=== PATIENT | female | born 1950 | race Caucasian/White ===

== ENCOUNTER → 2020-10-08 12:43 | Outpatient (CLI) | payer MEDICARE, SELFPAY ==
--- NOTE | ~2020-10-08 | MR_ITS ---
. EXAMINATION: MR lumbar spine wo con DATE: 10/08/2020 13:47 INDICATION: Low back pain. TECHNIQUE: Magnetic resonance imaging (MRI) of the lumbar spine was performed without intravenous con trast. Sequences included sagittal T2-weighted FSE, sagittal T2-weighted FS FSE, sagittal T1-weighted FSE, and axial T2-weighted FSE. COMPARISON: None FINDINGS: There is 3 mm anterolisthesis of L4 on L5. Vertebral body heights are normal. There is mild ly decreased disc height at L1-L2. The distal spinal cord signal intensity is normal. The conus medul nicola is at L1. There is a 2.7 cm cyst in left kidney. The following disc levels are specifically dis cussed: L1-L2: The disc is bulging. There is moderate bilateral facet joint osteoarthritis. There is mild rig ht neural foraminal stenosis. There is mild central canal stenosis. L2-L3: The disc is mildly bulging. There is mild bilateral facet joint osteoarthritis. There is mild left neural foraminal stenosis. There is no central canal stenosis. L3-L4: The disc is bulging and has an annular fissure. There is severe bilateral facet joint osteoart hritis. There is mild bilateral neural foraminal stenosis. There is mild central canal stenosis. L4-L5: The disc does not extend beyond the endplate margin. There is severe bilateral facet joint ost eoarthritis. There is mild bilateral neural foraminal stenosis. There is moderate central canal steno sis. L5-S1: The disc does not extend beyond the endplate margin. There is severe bilateral facet joint ost eoarthritis. There is no neural foraminal stenosis. There is no central canal stenosis. IMPRESSION: 1. Moderate lumbar spondylosis. Reviewed, dictated and finalized at location A. [facility]
== END ==
PROVIDERS: Visit Provider Nurse Practitioner Adult Health
DX: M47.816 Spondylosis without myelopathy or radiculopathy, lumbar region (principal)
CPT/HCPCS: 72148

== ENCOUNTER → 2022-03-02 07:06 | Outpatient (CLI) | payer MEDICARE, SELFPAY ==
--- NOTE | ~2022-03-02 | MR_ITS ---
EXAMINATION: MR lumbar spine wo con DATE: 03/02/2022 07:55 INDICATION: Lumbar radiculopathy TECHNIQUE: Magnetic resonance imaging (MRI) of the lumbar spine was performed without intravenous con trast. Sequences included sagittal T2-weighted FSE, sagittal T2-weighted FS FSE, sagittal T1-weighted FSE, and axial T2-weighted FSE. COMPARISON: 10/08/2020 FINDINGS: Unchanged 2-3 mm anterolisthesis L4 on L5. Vertebral body heights are normal. Again seen is mild disc height loss at L1-L2 with mild fibrofatty degenerative endplate changes along the margins of a small Schmorl's node at the anterior inferior endplate of L1. Marrow signal is otherwise normal. Additiona l mild disc height loss at L4-L5 and minimal disc height loss at L3-L4. The conus medullaris terminat es at L1-L2. There is normal signal in the caudal spinal cord. Consistent is a T2 hyperintense exophy tic cyst arising from the lower pole of the left kidney measuring approximately 3.1 cm. Paravertebral soft tissues are otherwise unremarkable. The following disc levels are specifically discussed: T12-L1: The disc does not extend beyond the endplate margin. There is mild bilateral facet joint oste oarthritis. There is no neural foraminal stenosis. There is no central canal stenosis. L1-L2: Disc is bulging. There is moderate bilateral facet joint osteoarthritis. There is mild bilater al neural foraminal stenosis. There is mild central canal stenosis. L2-L3: Disc is mildly bulging. There is moderate bilateral facet joint osteoarthritis. There is mild bilateral neural foraminal stenosis. There is no central canal stenosis. L3-L4: Disc is bulging with annular fissure. There is severe bilateral facet joint osteoarthritis. Th ere is mild bilateral neural foraminal stenosis. There is mild central canal stenosis. L4-L5: Disc is bulging. There is severe bilateral facet joint osteoarthritis. There is mild to modera te bilateral neural foraminal stenosis. There is severe central canal stenosis. L5-S1: The disc does not extend beyond the endplate margin. There is severe bilateral facet joint ost eoarthritis. There is no neural foraminal stenosis. There is no central canal stenosis. IMPRESSION: 1. Moderate lumbar spondylosis most notable for severe central canal stenosis at L4-L5. Reviewed, dictated and finalized at location A. IMPRESSION: 1. Moderate lumbar spondylosis most notable for severe central canal stenosis a t L4-L5.
--- NOTE | ~2022-03-02 | MR_ITS ---
EXAMINATION: MR thoracic spine wo con DATE: 03/02/2022 07:54 INDICATION: Thoracic spine pain TECHNIQUE: Magnetic resonance imaging (MRI) of the thoracic spine was performed without intravenous c ontrast. Sagittal localizer T1-weighted FSE of the cervicothoracic spine was obtained. Thoracic spine sequences included sagittal T2-weighted FSE, sagittal T1-weighted SE, Sagittal T2-weighted FS FSE, a nd axial T2-weighted FSE. COMPARISON: None FINDINGS: Alignment is normal. Anterior spinal fusion at C6-C7. Thoracic vertebral body heights are normal.Mild fibrofatty degenerative endplate changes along a small Schmorl's node at the anterior inferior endpl ate of L1. Marrow signal is otherwise normal. Moderate disc height loss atT5-T6 and T6-T7 and mild di sc height loss at the remaining levels from T2-T3 through T10-T11.Annular fissure with small central disc extrusion at T1-T2 measures3 mm AP, 3-4 mm left to right and which extends 5 mm caudal to the le iesha of the superior endplate of T1 which results in only mild central canal stenosis. Tiny left rayna inal zone disc protrusion at T8-T9 with no central canal stenosis. Remaining discs do not extend beyo nd the endplate margins. There is normal spinal cord signal. The conus terminates at L1-L2. There is mild bilateral neural foraminal stenosis at T1-T2 resulting from moderate left-sided and mild right-s ided facet osteoarthritis. Additional mild to moderate facet osteoarthritis scattered throughout the remainder of the thoracic spine without significant neural foraminal stenosis. 1.5 cm left thyroid no dule. Paravertebral soft tissues are unremarkable. IMPRESSION: 1. Mild to moderate thoracic spondylosis most notable for small central disc extrusion at T1-T2 resul ting in only mild central canal stenosis. 2. Anterior spinal fusion at C6-C7. 3. 1.5 cm left thyroid nodule. Could consider thyroid ultrasound for risk stratification. Reviewed, dictated and finalized at location A. IMPRESSION: 1. Mild to moderate thoracic spondylosis most notable for small central disc ex trusion at T1-T2 resulting in only mild central canal stenosis. 2. Anterior spinal fusion at C6-C7. 3. 1.5 cm left thyroid nodule. Could consider thyroid ultrasound for risk strat ification.
== END ==
PROVIDERS: Visit Provider Nurse Practitioner Family
DX: M47.896 Other spondylosis, lumbar region (principal); Z98.1 Arthrodesis status; E04.1 Nontoxic single thyroid nodule
CPT/HCPCS: 72146; 72148

== ENCOUNTER 2022-07-01 08:27 | Outpatient (CLI) | payer MEDICARE, SELFPAY ==
--- NOTE | 2022-07-01 | ECG_ITS ---
Measurements Intervals Badger Rate: 84 P: 41 MA: 177 QRS: -19 QRSD: 79 T: 30 QT: 336 QTc: 399 Interpretive Statements SINUS RHYTHM POSSIBLE LEFT ATRIAL ENLARGEMENT CANNOT RULE OUT SEPTAL INFARCT, AGE INDETERMINATE ABNORMAL ECG NO PREVIOUS ECG AVAILABLE FOR COMPARISON Electronically Signed On 07-01-2022 9:14:18 CDT by Ivan Rodriguez D.O.
[2022-07-01 09:16] LABS: Basophils Absolute Auto 0.1 K/mm3 (0.0-0.1); Eosinophils Absolute Auto 0.1 K/mm3 (0-0.3); Eosinophils Percent Auto 2.3 % (0-4.4); Hemoglobin 14.9 g/dL (12.0-15.0); Lymphocytes Absolute Auto 1.81 K/mm3 (0.9-3.2); Lymphocytes Percent Auto 37.4 % (18.3-44.2); Mean Corpuscular HGB Conc 32.4 g/dl (32-36); Mean Corpuscular Hemoglobin 28.7 pg (26-34); Mean Corpuscular Volume 88.5 fl (80-100); Mean Platelet Volume 9.4 fl (7.4-10.4); Monocytes Absolute Auto 0.4 K/mm3 (0.1-0.6); Monocytes Percent Auto 8.9 % (2.6-8.5); Neutrophils Absolute Auto 2.4 K/mm3 (1.3-6.7); Neutrophils Percent Auto 50.4 % (45.5-73.1); Platelet Count Result 233 k/mm3 (150-375); Red Cell Distribution Width 14.4 % (11.5-14.5); White Blood Count 4.8 K/mm3 (4.5-10.0)
[2022-07-01 09:26] LABS: Anion Gap 12 mmol/L (8-16); Blood Urea Nitrogen 21 mg/dL (7-17); CRP < 0.5 mg/dL (<1.0); Calcium 9.7 mg/dL (8.4-10.2); Carbon Dioxide 25 mmol/L (22-30); Chloride 100 mmol/L (98-107); Estimated Glomerular Filt Rate 54; Glucose 112 mg/dL (65-110); Potassium 4.1 mmol/L (3.4-5.0); Sodium 137 mmol/L (137-145)
[2022-07-01 09:42] LABS: Appearance Urine Slightly Cloudy (Clear); Bilirubin Urine 1+ (Negative); Blood Urine Negative (Negative); Color Urine Dark Yellow (Yellow); Glucose Urine UA Negative (Negative); Ketones Urine Trace mg/dL (Negative); Leukocyte Esterase Ur Trace LEU/UL (Negative); Nitrate Urine Negative (Negative); Protein Urine Negative (Negative); Specific Grav Ur >= 1.030 (1.001-1.035); Urobilinogen Urine 0.2 mg/dL (<2.0)
[2022-07-01 10:04] LABS: Amorphous Sediment Urine Few; Bacteria Urine Trace /hpf; Mucus Urine Few /lpf; Squamous Epithelial Cell Urine Moderate /hpf (Few); WBC Urine 21-30 /hpf
[2022-07-01 10:09] LABS: Add Urine Microscopic? YES
[2022-07-01 10:51] LABS: Erythrocyte Sedimentation Rate 12 mm/hr (0-20)
== END 2022-07-01 08:28 | disposition home or self-care (01) ==
PROVIDERS: Visit Provider Nurse Practitioner Family
DX: Z01.818 Encounter for other preprocedural examination (principal); R94.31 Abnormal electrocardiogram [ECG] [EKG]
CPT/HCPCS: 36415; 80048; 81001; 85025; 85652; 86140; 87086; 87088; 93005

== ENCOUNTER → 2022-11-10 12:31 | Outpatient (CLI) | payer MEDICARE, SELFPAY ==
--- NOTE | ~2022-11-10 | MM_ITS ---
EXAMINATION: MM screening elizabeth BI w a[facility] HISTORY: Screening mammogram TECHNIQUE: Craniocaudal and mediolateral oblique 3-D tomosynthesis images were obtained and synthetic 2-D images were generated. CAD analysis was submitted and interpreted. COMPARISON: None BREAST PARENCHYMAL COMPOSITION: There are scattered areas of fibroglandular density... FINDINGS: There is no evidence of suspicious mass, calcification, or architectural distortion to sugg est malignancy in either breast. There has been no suspicious interval change. IMPRESSION: 1. No mammographic evidence of malignancy. 2. Recommend routine screening mammography in one year. BI-RADS Category 1: Negative Reviewed, dictated and finalized at location A.
== END ==
DX: Z12.31 Encounter for screening mammogram for malignant neoplasm of breast (principal)
CPT/HCPCS: 77063; 77067

== ENCOUNTER → 2023-03-07 10:24 | Outpatient (CLI) | payer MEDICARE, SELFPAY ==
--- NOTE | ~2023-03-07 | XR_ITS ---
AP and lateral views of the left hip Clinical history: Pain Findings: No acute fracture or dislocation is seen. There is severe left hip joint osteoarthritic, wi th joint space narrowing and extensive bony productive change. Soft tissues are unremarkable. Impression: Severe left hip joint osteoarthritis. No fracture or dislocation seen. Reviewed, dictated and finalized at location . Impression: Severe left hip joint osteoarthritis. No fracture or dislocation seen.
== END ==
PROVIDERS: PCP Family Medicine Sports Medicine; Visit Provider Nurse Practitioner Family
DX: M16.12 Unilateral primary osteoarthritis, left hip (principal)
CPT/HCPCS: 73502

== ENCOUNTER 2024-04-12 12:42 | Outpatient (CLI) | payer MEDICARE, SELFPAY ==
--- NOTE | ~2024-04-12 | MM_ITS ---
EXAMINATION: MM screening elizabeth BI w aub[facility] HISTORY: Screening TECHNIQUE: Craniocaudal and mediolateral oblique 3-D tomosynthesis images were obtained and synthetic 2-D images were generated. CAD analysis was submitted and interpreted. COMPARISON: 11/10/2022 BREAST PARENCHYMAL COMPOSITION: Not dense: There are scattered areas of fibroglandular density. FINDINGS: There is no evidence of suspicious mass, calcification, or architectural distortion to sugg est malignancy in either breast. There has been no suspicious interval change. IMPRESSION: 1. No mammographic evidence of malignancy. 2. Recommend routine screening mammography in one year. BI-RADS Category 1: Negative Reviewed, dictated and finalized at location B.
== END 2024-04-12 12:43 ==
LOC: MICIMG 12:44
PROVIDERS: PCP Obstetrics & Gynecology; Visit Provider Family Medicine Sports Medicine
DX: Z12.31 Encounter for screening mammogram for malignant neoplasm of breast (principal)
CPT/HCPCS: 77063; 77067

== ENCOUNTER 2025-05-14 08:55 | Outpatient (CLI) | payer MEDICARE, SELFPAY ==
--- NOTE | ~2025-05-14 | MM_ITS ---
EXAMINATION: MM screening elizabeth BI w [facility] HISTORY: Screening TECHNIQUE: Craniocaudal and mediolateral oblique 3-D tomosynthesis images were obtained and synthetic 2-D images were generated. CAD analysis was submitted and interpreted. COMPARISON: 11/10/2022 BREAST PARENCHYMAL COMPOSITION: There are scattered areas of fibroglandular density. FINDINGS: There is no evidence of suspicious mass, calcification, or architectural distortion to suggest malignancy. There has been no suspicious interval change. IMPRESSION: 1. No mammographic evidence of malignancy. Recommend routine screening mammography in one year. BI-RADS Category 2: Benign finding(s) Reviewed, dictated and finalized at location Q. IMPRESSION: 1. No mammographic evidence of malignancy. Recommend routine screening mammogra phy in one year. BI-RADS Category 2: Benign finding(s)
--- OUTSIDE RECORDS SUMMARY | 2025-05-14 10:00 | XMS_ITS | Clinical Summary ---
Author Organization [facility] Address [address] [place] [address] Care Team Providers Care Management Engineer Name Role Phone Randolph Lobato MD Unavailable [phone] Maria E Schneider MD Unavailable [phone] Leslye Armenta MD Unavailable [phone] Shabnam Rivera MD Unavailable [phone] Iker Cage MD Unavailable Jaden Alvares MD Unavailable Zeus Marie MD Unavailable [phone] Anabell Jalloh NP Primary Care Provider [phone] Allergies Active Allergy Reactions Criticality Noted Date Comments Diphenhydramine Agitation Low 05/18/2024 Nickel Rash Medium 08/07/2011 Paroxetine Other (See comments) Low 09/28/2017 Hyperactivity, Itchy on the inside Fttdqen-Eca-Yzw Reductase Inhibitors Joint pain Low 07/03/2018 Ezetimibe Muscle pain Medium 08/04/2023 Medications escitalopram (LEXAPRO) 20 mg tablet Take 1.5 tablets (30 mg total) by mouth every evening Active cholecalciferol (VITAMIN D-3) 4,000 unit tablet daily Active traZODone (DESYREL) 100 mg tablet TAKE 1 TABLET EVERY NIGHT 90 tablet 3 5 Active losartan (COZAAR) 50 mg tabletIndication s:Hypertension, essential TAKE 1 TABLET TWICE DAILY 180 tablet 3 5 Active solifenacin (VESIcare) 10 mg tablet 5 Active amLODIPine (NORVASC) 5 mg tabletIndication s:Essential hypertension Take 1 tablet (5 mg total) by mouth daily 90 tablet 3 5 Active metFORMIN XR (GLUCOPHAGE XR) 500 mg 24 hr tabletIndication s:Type 2 diabetes mellitus without complication, without long-term current use of insulin (HCC) Take 1 tablet (500 mg total) by mouth daily with breakfast 90 tablet 1 5 07/26/20 26 Active semaglutide (OZEMPIC) 0.25 mg or 0.5 mg (2 mg/3 mL) pen injector injectionIndicat ions:type 2 diabetes mellitus Inject 0.25 mg under the skin every 7 days X 4 weeks then increase to .5mg weekly 6 mL 1 5 Active semaglutide (OZEMPIC) 0.25 mg or 0.5 mg (2 mg/3 mL) pen injector injectionIndicat ions:Type 2 diabetes mellitus without complication, without long-term current use of insulin (HCC) Inject 0.5 mg under the skin every 7 days 3 mL 1 5 05/02/20 25 Discontin ued(Alter joss therapy) Active Problems Problem Noted Date Diagnosed Date Abnormal mammogram 05/02/2025 Stage 3a chronic kidney disease 05/02/2025 Assessment & Plan (05/02/2025 1:39 PM CDT): Will work on increasing water intake, decreasing soda intake. Will recheck bmp in 3 months Type 2 diabetes mellitus wit hout complication, without long-term current use of insulin 05/02/2025 Assessment & Plan (05/02/2025 1:39 PM CDT): Orders: metFORMIN XR (GLUCOPHAGE XR) 500 mg 24 hr tablet; Take 1 tablet (500 mg total) by mouth daily with breakfast Hemoglobin A1c; Future Basic metabolic panel; Future Lipid panel; Future Albumin Creatinine Ratio, Urine; Future Actinic keratosis 04/04/2025 Assessment & Plan (04/04/2025 12:52 PM CDT): Cryotherapy, skin lesion Date/Time: 04/04/2025 12:46 PM Performed by: Anabell Jalloh NP Authorized by: Anabell Jalloh NP Consent: Verbal consent obtained Risks and benefits: risks, benefits and alternatives were discussed Consent given by: patient Patient understanding: patient states understanding of the procedure being performed Patient consent: the patient's understanding of the procedure matches consent given Procedure consent: procedure consent matches procedure scheduled Patient identity confirmed: verbally with patient Preparation: Patient was prepped and draped in the usual sterile fashion. Local anesthesia used: no Anesthesia: Local anesthesia used: no Sedation: Patient sedated: no Patient tolerance: patient tolerated the procedure well with no immediate complications Comments: Options discussed with patient including OTC remedies, watchful waiting and in office treatment. The risk and benefits of freezing in the office was discussed; patient would like to proceed. 1 lesion on left forearm was frozen three times with liquid nitrogen with good freeze/thaw cycles. Pt tolerated the procedure well. Pt to keep areas clean and dry. Pt advised to anticipate redness and tenderness. Bilateral primary osteoarthritis of knee 025 Primary osteoarthritis of right hip 02/17/2024 Statin intolerance 02/13/2024 Assessment & Plan (04/04/2025 11:01 AM CDT): Assessment & Plan (02/13/2024 6:03 PM CDT): Patient is trying to control cholesterol diet and lifestyle and given history of intolerance to ezetimibe and multiple statins. If LDL does not continue to improve may need to consider a trial of something like Nexletol OAB (overactive bladder) 02/13/2024 Assessment & Plan (11/12/2024 2:48 PM CDT): Bladder is doing well on the myrbetric Assessment & Plan (02/13/2024 6:03 PM CDT): Chronic. Working with Urology. Symptoms improved with Gemtesa Well woman exam 10/24/2023 Overview (10/24/2023): Lab: Pap:remote h/o abnl Labs with pcp. Zaida:due Colonoscopy:2022 per pt BMD:2021 Assessment & Plan (11/12/2024 3:01 PM CDT): Complete exam done. She is very nervous about not getting paps as she had a friend who had cervical cancer at age 74. Options discussed Will do next year. Assessment & Plan (10/24/2023 11:15 AM MANAGER OF BUSINESS): Complete exam done. Major depressive disorder wi th single episode, in partial remission 02/09/2023 Assessment & Plan (04/04/2025 11:01 AM CDT): Assessment & Plan (02/13/2024 6:01 PM CDT): Chronic. Stable on current regimen. She is working with Psychiatry. They do have her on the higher dose of citalopram 30 mg daily with caution. She will continue her current regimen per psychologist as she seems to be seeing benefit and tolerates it Assessment & Plan (08/11/2023 6:46 PM MANAGER OF BUSINESS): Chronic. Stable on medication. Psychiatry has her currently on Lexapro 30 mg daily. Continue care for specialist Urinary urgency 10/18/2022 Assessment & Plan (04/04/2025 12:52 PM CDT): Sees urology of [place]. Currently on vesicare 10mg Assessment & Plan (02/13/2024 6:02 PM CDT): Chronic. Struggles with symptoms. She is working with Urology. She notes the Gemtesa has provided good benefit Assessment & Plan (10/24/2023 11:13 AM MANAGER OF BUSINESS): She is doing well with the gemtesa Will continue on. Assessment & Plan (08/11/2023 6:46 PM MANAGER OF BUSINESS): Chronic. Improve with recent medication adjustment by her urologist. Assessment & Plan (10/18/2022 9:29 AM MANAGER OF BUSINESS): Timed voiding discussed Will see if she can get the myrbetriq If not, will divided the dose and see if the sx are better. Obstructive sleep apnea 02/06/2020 Assessment & Plan (02/13/2024 6:01 PM CDT): Chronic. Relatively controlled. Continue nightly use of CPAP. Continue weight loss efforts Assessment & Plan (08/11/2023 6:46 PM MANAGER OF BUSINESS): Chronic. On CPAP. Continue weight loss IFG (impaired fasting glucose) 10/31/2018 Assessment & Plan (02/13/2024 6:02 PM CDT): Chronic. Suboptimally controlled in the past but has been improving. Hopefully the continued weight loss efforts will provide significant benefit. She has an A1c on order from the orthopedic surgeon as part of her preoperative labs. We will see what this shows Assessment & Plan (08/11/2023 6:46 PM MANAGER OF BUSINESS): Chronic. Improving unless labs. Continue work on healthy diet, exercise weight loss Assessment & Plan (10/06/2022 8:37 AM MANAGER OF BUSINESS): Impaired Fasting Glucose is improving with lifestyle modifications Counseled on regular aerobic exercise, including walkig, jogging, targeting 10K- 20K step equivalent daily., Counseled on low carbohydrate diet and Counseled on intermittent fasting diet. Follow up at the next regular appointment Assessment & Plan (12/29/2021 9:21 AM CDT): Impaired Fasting Glucose is stable Counseled on regular aerobic exercise, including walkig, jogging, targeting 10K- 20K step equivalent daily., Counseled on low carbohydrate diet and Counseled on intermittent fasting diet. Follow up at the next regular appointment Assessment & Plan (05/21/2021 9:03 AM CDT): Impaired Fasting Glucose is stable Counseled on regular aerobic exercise, including walkig, jogging, targeting 10K- 20K step equivalent daily., Counseled on low carbohydrate diet and Counseled on intermittent fasting diet. Follow up at the next regular appointment Assessment & Plan (10/28/2020 1:21 PM MANAGER OF BUSINESS): Impaired Fasting Glucose is stable Counseled on regular aerobic exercise, including walkig, jogging, targeting 10K- 20K step equivalent daily., Counseled on low carbohydrate diet and Counseled on intermittent fasting diet. Follow up at the next regular appointment Assessment & Plan (04/15/2020 10:46 AM CDT): Impaired Fasting Glucose is stable Counseled on regular aerobic exercise, including walkig, jogging, targeting 10K- 20K step equivalent daily., Counseled on low carbohydrate diet and Counseled on intermittent fasting diet. Follow up at the next regular appointment Assessment & Plan (10/09/2019 2:35 PM MANAGER OF BUSINESS): Impaired Fasting Glucose is stable Counseled on regular aerobic exercise, including walkig, jogging, targeting 10K- 20K step equivalent daily., Counseled on low carbohydrate diet and Counseled on intermittent fasting diet. Follow up 6 months Assessment & Plan (10/31/2018 9:07 AM MANAGER OF BUSINESS): Mild FPG elevation. Counseled on exercise, diet, weight loss. Lumbar spinal stenosis 10/31/2018 Assessment & Plan (02/13/2024 6:00 PM CDT): Chronic. Struggles with symptoms from pain. Follows with pain management. Continue Xtampza ER and spinal stimulator. Continue gabapentin. She has been working on trying to wean use in his down to just 300 mg twice daily. Assessment & Plan (08/11/2023 6:46 PM MANAGER OF BUSINESS): Chronic. Follows with pain management. Continue care per specialists Assessment & Plan (10/06/2022 8:35 AM MANAGER OF BUSINESS): Sciatica pain much improved since spinal cord stimulator placed on 07/09/2022. Assessment & Plan (10/28/2020 1:28 PM MANAGER OF BUSINESS): Severe at L4/L5 on MRI 12/11/18. Currently seeing Pain Clinic and scheduled for what sounds like lumbar SONYA in a couple weeks. Assessment & Plan (10/09/2019 2:34 PM MANAGER OF BUSINESS): Chronic. Fluctuating. Continue HEP and current regimen. Assessment & Plan (02/01/2019 10:49 AM CDT): Improving with current regimen per Dr. Lima Assessment & Plan (10/31/2018 9:08 AM MANAGER OF BUSINESS): Fluctuating. Benign exam. Check labs, Xrays. Refer to PT. Advised OTC analgesics PRN and weight loss. Lumbar degenerative disc disease 10/31/2018 Assessment & Plan (02/13/2024 6:01 PM CDT): Chronic. Has struggled with back pain. continue care per pain management. Hopefully with continued weight loss she will see continued improvement in her symptoms and be able to further wean meds in the future Assessment & Plan (08/11/2023 6:46 PM MANAGER OF BUSINESS): Chronic. Follows with pain management. Continue care per specialist Essential hypertension Assessment & Plan (04/04/2025 11:01 AM CDT): Orders: CBC with auto differential; Future amLODIPine (NORVASC) 5 mg tablet; Take 1 tablet (5 mg total) by mouth daily Assessment & Plan (02/13/2024 5:59 PM CDT): Chronic. Controlled. Continue losartan and amlodipine. Monitor blood pressure. Goal less than 140/90 with optimal less than 130/80. Work on diet, exercise and continued weight loss Assessment & Plan (08/11/2023 6:44 PM MANAGER OF BUSINESS): Chronic. HTN controlled. Cont prescription Rx. Low sodium diet (DASH or Mediterranean), exercise, wt loss (if over weight) discussed Assessment & Plan (10/06/2022 8:38 AM MANAGER OF BUSINESS): Hypertension is stable Continue current treatment regimen. Weight loss. Regular aerobic exercise. Continue current medications. Blood pressure will be reassessed at the next regular appointment. Assessment & Plan (12/29/2021 9:21 AM CDT): Hypertension is stable Continue current treatment regimen. Dietary sodium restriction. Weight loss. Regular aerobic exercise. Continue current medications. Blood pressure will be reassessed at the next regular appointment. Assessment & Plan (08/18/2021 9:57 AM MANAGER OF BUSINESS): Hypertension is improving with treatment Continue current treatment regimen. Dietary sodium restriction. Weight loss. Regular aerobic exercise. Continue current medications. Blood pressure will be reassessed at the next regular appointment. Assessment & Plan (05/21/2021 9:03 AM CDT): Hypertension is improving with treatment Dietary sodium restriction. Weight loss. Regular aerobic exercise. Medication changes per orders. Blood pressure will be reassessed in 3 months. Increase dose losartan. Assessment & Plan (10/28/2020 1:21 PM MANAGER OF BUSINESS): Hypertension is stable Continue current treatment regimen. Weight loss. Regular aerobic exercise. Continue current medications. Blood pressure will be reassessed at the next regular appointment. Assessment & Plan (04/15/2020 10:46 AM CDT): Hypertension is stable Continue current treatment regimen. Dietary sodium restriction. Weight loss. Regular aerobic exercise. Continue current medications. Blood pressure will be reassessed at the next regular appointment. Assessment & Plan (10/09/2019 2:18 PM MANAGER OF BUSINESS): Hypertension is controlled Continue current treatment regimen. Dietary sodium restriction. Weight loss. Regular aerobic exercise. Continue current medications. Ambulatory blood pressure monitoring. Blood pressure will be reassessed at the next regular appointment. Assessment & Plan (02/01/2019 10:56 AM CDT): Hypertension is controlled. Continue current treatment regimen. Weight loss. Regular aerobic exercise. Continue current medications. Ambulatory blood pressure monitoring. Blood pressure will be reassessed at the next regular appointment. Assessment & Plan (10/31/2018 9:08 AM MANAGER OF BUSINESS): Hypertension is improving with treatment. Continue current treatment regimen. Weight loss. Regular aerobic exercise. Continue current medications. Blood pressure will be reassessed in 3 months. Assessment & Plan (07/03/2018 9:24 AM MANAGER OF BUSINESS): Hypertension is controlled.. Dietary sodium restriction. Regular aerobic exercise. Ambulatory blood pressure monitoring. change from verapamil to amlodipine Blood pressure will be reassessed in 3 months. Hyperlipidemia Assessment & Plan (05/02/2025 1:39 PM CDT): Allergic to statins and zetia. Will consider repatha in the future. Orders: Lipid panel; Future Assessment & Plan (04/04/2025 11:01 AM CDT): Orders: Lipid panel; Future Comprehensive metabolic panel; Future CBC with auto differential; Future Assessment & Plan (02/13/2024 5:59 PM CDT): Chronic. Has been intolerant to statins and Zetia. Hopefully this will continue to improve with diet and lifestyle as well as her recent weight loss efforts. Offered option to recheck but she defers today. Consider rechecking at 6 months. Resulted in the Past 12 Months 08/03/23 1017 CHOL 227* TRIG 135 HDL 64 LDL 137* Assessment & Plan (08/11/2023 6:45 PM MANAGER OF BUSINESS): Intolerance to multiple statins and Zetia. Discussed LDL goal less than 100 with optimal less than 70. Due to medication and tolerance patient may eventually need to be considered for PCSK9 inhibitor like Repatha or Praluent. If we are working on weight loss and exercise currently we will give her some additional time to try to get numbers better before considering medication Assessment & Plan (12/29/2021 9:07 AM CDT): I discussed ASCVD risk. I spent 15 minutes counseling on CV risk reduction. Our discussion included the followin. Healthy eating habits, including low carbohydrate diet, low starch vegetables. 2. Regular aerobic exercise plan, which can include walking, jogging, treadmill, rowing, swimming biking. I recommend targeting the equivalent of 10K steps daily most days of the week. 3. Optimize BP control. Assessment & Plan (10/28/2020 1:22 PM MANAGER OF BUSINESS): I spent 15 minutes counseling her on CV risk reduction. Our discussion included the followin. Healthy eating habits, including low carbohydrate diet, low starch vegetables. We discussed intermittent fasting and paleo diets. 2. Regular aerobic exercise plan, which can include walking, jogging, treadmill, rowing, swimming biking. I recommend targeting the equivalent of 20K steps daily most days of the week. 3. Optimize BP control. Continue current regimen. Assessment & Plan (10/09/2019 2:18 PM MANAGER OF BUSINESS): I spent 15 minutes counseling her on CV risk reduction. Our discussion included the followin. Healthy eating habits, including low carbohydrate diet, low starch vegetables. We discussed intermittent fasting and paleo diets. 2. Regular aerobic exercise plan, which can include walking, jogging, treadmill, rowing, swimming biking. I recommend targeting the equivalent of 20K steps daily most days of the week. 3. Optimize BP control. 4. Assessment of ASCVD risk and recommendations how to mitigate this risk.discussion was consistent with the 5 A s approach. Continue current regimen. Assessment & Plan (02/01/2019 10:52 AM CDT): Intolerant of statins due to myalgia and joint pain. We discussed options. Try lower dose statin and observe. Assessment & Plan (10/31/2018 8:55 AM MANAGER OF BUSINESS): I spent 15 minutes counseling her on CV risk reduction. Our discussion included the followin. Healthy eating habits, including low carbohydrate diet, low starch vegetables. We discussed intermittent fasting and paleo diets. 2. Regular aerobic exercise plan, which can include walking, jogging, treadmill, rowing, swimming biking. I recommend targeting the equivalent of 20K steps daily most days of the week. 3. Optimize BP control. 4. Taking aspirin. 5. Assessment of ASCVD risk and recommendations how to mitigate this risk.discussion was consistent with the 5 A s approach. Continue marcelo ayala was started after last visit. Assessment & Plan (07/03/2018 9:06 AM MANAGER OF BUSINESS): I spent 15 minutes counseling her on CV risk reduction. Our discussion included the followin. Healthy eating habits, including low carbohydrate diet, low starch vegetables. We discussed intermittent fasting and paleo diets. 2. Regular aerobic exercise plan, which can include walking, jogging, treadmill, rowing, swimming biking. I recommend targeting the equivalent of 20K steps daily most days of the week. 3. Optimize BP control. 4. Taking aspirin. 5. Assessment of ASCVD risk and recommendations how to mitigate this risk.discussion was consistent with the 5 A s approach. Intolerant of statins due to joint pain. Class 3 severe obesity due t o excess calories with serious comorbidity and body mass index (BMI) of 40.0 to 44.9 in adult Assessment & Plan (05/02/2025 1:39 PM CDT): Assessment & Plan (04/04/2025 12:52 PM CDT): BMI Follow-up includes: nutrition counseling. Assessment & Plan (02/13/2024 6:00 PM CDT): Chronic. Suboptimally controlled but showing significant improvement. Patient has really been working on diet, exercise and weight loss in efforts to get her BMI under 40 to be a candidate for bilateral hip replacement. Encouraged her to keep up the diet and weight loss efforts. Continued weight loss will be beneficial for most of her medical issues. Hopefully once she gets her hips replaced she will be able to get even more exercise and keep up the good work Assessment & Plan (08/11/2023 6:45 PM MANAGER OF BUSINESS): Chronic. Suboptimally controlled but improving. Continue work on weight loss. We need to target a BMI of less than 40 to have her be a candidate for possible total hip replacement. Patient has lost about 20 lb in the last 6 months. We encouraged her to keep up the good work and congratulated her on her current success Assessment & Plan (12/29/2021 9:19 AM CDT): Obesity is worsening. Discussed the patient's BMI. The BMI is above average; BMI management plan is completed. General weight loss/lifestyle modification strategies discussed (elicit support from others; identify saboteurs; non-food rewards, etc). Assessment & Plan (05/21/2021 8:58 AM CDT): Obesity is improving with lifestyle modifications. Discussed the patient's BMI. The BMI is above average; BMI management plan is completed. General weight loss/lifestyle modification strategies discussed (elicit support from others; identify saboteurs; non-food rewards, etc). Counseled on dietary options including mediterranean diet and intermittent fasting Assessment & Plan (10/28/2020 1:22 PM MANAGER OF BUSINESS): Obesity is unchanged. Discussed the patient's BMI. The BMI is above average; BMI management plan is completed. General weight loss/lifestyle modification strategies discussed (elicit support from others; identify saboteurs; non-food rewards, etc). Counseled on dietary options including mediterranean diet and intermittent fasting Assessment & Plan (04/15/2020 10:46 AM CDT): Obesity is unchanged. Discussed the patient's BMI. The BMI is above average; BMI management plan is completed. General weight loss/lifestyle modification strategies discussed (elicit support from others; identify saboteurs; non-food rewards, etc). Counseled on dietary options including mediterranean diet and intermittent fasting Assessment & Plan (10/09/2019 2:36 PM MANAGER OF BUSINESS): Obesity is severe. Discussed the patient's BMI. The BMI is above average; BMI management plan is completed. General weight loss/lifestyle modification strategies discussed (elicit support from others; identify saboteurs; non-food rewards, etc). Counseled on dietary options including mediterranean diet and intermittent fasting Assessment & Plan (02/01/2019 10:44 AM CDT): Obesity is severe. Discussed the patient's BMI. The BMI is above average; BMI management plan is completed. General weight loss/lifestyle modification strategies discussed (elicit support from others; identify saboteurs; non-food rewards, etc). Assessment & Plan (07/03/2018 9:07 AM MANAGER OF BUSINESS): Obesity is unchanged. Discussed the patient's BMI. The BMI is above average; BMI management plan is completed. General weight loss/lifestyle modification strategies discussed (elicit support from others; identify saboteurs; non-food rewards, etc). Informal exercise measures discussed, e.g. taking stairs instead of elevator. Regular aerobic exercise program discussed. Resolved Problems Problem Noted Date Diagnosed Date Resolved Date Aftercare following left hip joint replacement surgery 07/23/2024 11/12/2024 Bilateral hip joint arthritis 02/13/2024 07/23/2024 Ambulates with cane 02/13/2024 11/13/19 Primary osteoarthritis of left hip 03/09/2023 07/23/2024 Overview (03/09/2023): Severe left hip joint osteoarthritis with severe narrowing and extensive bony productive changes noted on x-rays 03/07/2023 from [facility] Assessment & Plan (02/13/2024 6:02 PM CDT): Chronic. Struggles with bilateral hip arthritis. As long as her preoperative EKG and labs look good I see no contraindication to giving her medical clearance for upcoming surgery Assessment & Plan (08/11/2023 6:47 PM MANAGER OF BUSINESS): Chronic. Patient is struggling with severe arthritis in pain. Needs to get BMI under 40 to be a surgical candidate for hip replacement. Patient is working on this and has lost 20 lb in the last 6 months. She has previously had extensive conservative treatment attempted with targeted injections and some therapy. She will keep continuing on activity modification and weight loss journey. Renal insufficiency 10/06/2022 02/10/20 Assessment & Plan (10/06/2022 8:38 AM MANAGER OF BUSINESS): New. Mild on labs 07/2022. Recheck labs. Spinal instability, lumbar 04/10/2019 0 10/28/2020 Assessment & Plan (05/10/2019 10:22 AM CDT): Grade 1 spondylolisthesis L4-5 with instability L5-S1 degenerative disc disease with lumbar spinal stenosis Recommended treatment is for the patient to continue her aquatic physical therapy exercises. If she would wish to have a repeat injection she is to simply give the office a call and we can repeat an injection at the L4-5 level. Her previous injections have been performed at L5-S1 which only provided temporary relief. She is also going to continue working on her weight loss. Assessment & Plan (04/10/2019 11:12 AM CDT): Grade 1 spondylolisthesis L4-5 with instability Degenerative disc disease L5-S1 with lumbar spinal stenosis The patient has had an epidural steroid injection at the L5-S1 level which provided her only about a week of relief. It does not appear that she has had any injections to the L4-5 level. Since the patient is still having lower back pain and bilateral radiating leg pain worse on the left than the right I would recommend a left L4- 5 interlaminar epidural steroid injection. At this time based upon her BMI of 45.5 she is not an elective surgical candidate. I would require her BMI to be under 35 in order to move forward with an elective spine surgery case. At this point I would recommend for her to continue conservative treatment with pain management until she can maintain appropriate weight loss. She is neurologically intact. Incomplete tear of left rotator cuff 04/04/2018 07/03/2018 Overview (04/04/2018): Added automatically from request for surgery [id number] Depression 02/09/2023 Assessment & Plan (12/29/2021 9:21 AM CDT): Depression is improving with treatment. Continue current treatment regimen. Regular aerobic exercise. Psychological condition will be reassessed at the next regular appointment. Assessment & Plan (10/28/2020 1:23 PM MANAGER OF BUSINESS): Depression is fair control. Continue current treatment regimen. Regular aerobic exercise. Psychological condition will be reassessed at the next regular appointment. We discussed changing from SSRI to Duloxetine, hopig to improve both depression and musculoskeletal pain. She will consider this. Assessment & Plan (04/15/2020 10:47 AM CDT): Depression is conotrolled. Continue current treatment regimen. Regular aerobic exercise. Psychological condition will be reassessed at the next regular appointment. Assessment & Plan (10/09/2019 2:18 PM MANAGER OF BUSINESS): Depression is improving with treatment. Continue current treatment regimen. Regular aerobic exercise. Psychological condition will be reassessed at the next regular appointment. Assessment & Plan (02/01/2019 10:50 AM CDT): Psychological condition is controlled. Continue current treatment regimen. Regular aerobic exercise. Psychological condition will be reassessed at the next regular appointment. Assessment & Plan (07/03/2018 9:07 AM MANAGER OF BUSINESS): Psychological condition is improving with treatment. Continue current treatment regimen. Regular aerobic exercise. Psychological condition will be reassessed at the next regular appointment. Encounters Date Type Department Care Team Description 05/02/2025 1:00 PM CDT Office Visit [facility] at [address] [phone] Anabell Jalloh NP Type 2 diabetes mellitus without complication, without long-term current use of insulin (HCC) (Primary Dx); Pure hypercholesterolemia; Stage 3a chronic kidney disease (HCC); Class 3 severe obesity due to excess calories with serious comorbidity and body mass index (BMI) of 40.0 to 44.9 in adult; Type 2 diabetes mellitus with stage 3a chronic kidney disease, without long-term current use of insulin (HCC) 04/05/2025 Results Follow-Up [facility] at [address] [phone] Anabell Jalloh NP Hemoglobin A1c, Lipid panel, Comprehensive metabolic panel, Additional followed-up results: 3 04/04/2025 11:15 AM CDT Lab [address] [address] Prediabetes; Mixed hyperlipidemia; Essential hypertension 04/04/2025 10:30 AM CDT Office Visit [facility] at [address] [phone] Anabell Jalloh NP Mixed hyperlipidemia (Primary Dx); Essential hypertension; Prediabetes; Major depressive disorder with single episode, in partial remission; Urinary urgency; Statin intolerance; Class 3 severe obesity due to excess calories with serious comorbidity and body mass index (BMI) of 40.0 to 44.9 in adult; Actinic keratosis 03/14/2025 Telephone [facility] at [address] [phone] Belkys Jama MD Med Refill from Last 3 Months Immunizations Immunization Administration Dates Next Due COVID-19 mRNA ([employer]) 0.3 m L (30 mcg) vaccine (12 years and up) 06/06/2023 Influenza, Quad, Adjuvantate d, Intramuscular 06/06/2023,05/25/2022 Influenza, Quadrivalent, Hig h Dose, Preservative Free, Intrr 05/18/2021,06/09/2020 Influenza, Trivalent, Adjuva nted, Intramuscular 06/20/2024,06/12/2019 Influenza, Trivalent, High D ose, Split, Preservative Free, Intramuscular 06/20/2021,05/21/2018,06/19/2017 Moderna SARS-CoV-2 Monovalen t Vaccination (12+ YRS) 06/20/2021,10/28/2020,09/25/2020 Pneumococcal Conjugate PCV 13 06/10/2016 Pneumococcal Polysaccharide PPV23 06/19/2017 RSV Vaccine, Pref, Recombina nt, Subunit, Adjuvanted, PF, IM (Arexvy) 06/06/2023 Tdap 10/09/2019 ZOSTER LIVE 11/18/2013 ZOSTER Recombinant 05/30/2019,03/19/2019 Surgical History Surgery Date Site/Laterality Comments ROTATOR CUFF REPAIR Bilateral Rt 2014, LT 2017 SPINE SURGERY 08/29/1992 - 08/28/1993 C5-6 fusion, no hardware, used synthetic material CHOLECYSTECTOMY 08/29/1996 - 08/28/1997 TONSILLECTOMY 08/29/1954 - 08/28/1955 FL UPPER GI AIR CONTRAST W KUB 01/01/2019 Bilateral SPINAL CORD STIMULATOR IMPLANT 07/09/2022 CATARACT EXTRACTION Bilateral JOINT REPLACEMENT Jan,Apr 2024 Bilateral hip Medical History Medical History Date Comments Cataract surgery done, bilateral Infectious viral hepatitis 1967 hepat itis A, hospitalized Chronic pain disorder Spinal instability, lumbar 04/10/2019 Tuberculosis 1969 treated in [facility] Depression Taking lexapro Hypertension treated w/meds Arthritis November 2022 Sleep apnea uses CPAP pt uses a c-pap machine PONV (postoperative nausea a nd vomiting) Anemia May 28 2024 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 Family History Medical History Relation Name Comments Cancer Father Dewey Reagan Colon cancer Father Dewey Reagan Diabetes Father Dewey Reagan Hearing loss Father Dewey Reagan Heart attack Father Dewey Reagan Heart disease Father Dewey Reagan Hypertension Father Dewey Reagan Lung disease Father Dewey Reagan Prostate cancer Father Dewey Reagan Sleep apnea Father Dewey Reagan Heart attack Maternal Grandmother Kaykay Lukefahr Obesity Maternal Grandmother Kaykay Lukefahr Hypertension Mother Flor Reagan Obesity Mother Flor Reagan Vision loss Mother Flor Reagan Hearing loss Paternal Grandfather Felipe Reagan Alzheimer's disease Paternal Grandmother Gaye Reagan Hearing loss Paternal Grandmother Gaye Reagan Obesity Paternal Grandmother Gaye Reagan Sleep apnea Sister Relation Name Status Comments Father Dewey Reagan Maternal Grandmother Kaykay Lukefahr Alive Mother Flor Reagan Alive Paternal Grandfather Felipe Reagan Alive Paternal Grandmother Gaye Reagan Alive Sister Social History Tobacco Use Types Packs/Day Years Used Date Smoking Tobacco: Never Cigarettes Smokeless Tobacco: Never Tobacco Cessation:Counseling Given: Not Answered Alcohol Use Standard Drinks/Week Comments Yes 2 (1 standard drink = 0.6 oz pur e alcohol) Humiliation, Afraid, Rape, and Kick questionnair e Answer Date Recorded Within the last year, have y ou been afraid of your partner or ex-partner? No 11/12/2024 Within the last year, have y ou been humiliated or emotionally abused in other ways by your partner or ex-partner? No Within the last year, have y ou been kicked, hit, slapped, or otherwise physically hurt by your partner or ex-partner? No 11/12/2024 Within the last year, have y ou been raped or forced to have any kind of sexual activity by your partner or ex-partner? No 11/12/2024 AUDIT-C Answer Date Recorded Q1: How often do you have a drink containing alc ohol? Monthly or less 05/28/2024 Q2: How many drinks containi ng alcohol do you have on a typical day when you are drinking? 1 or 2 05/28/2024 Q3: How often do you have si x or more drinks on one occasion? Never 05/28/2024 PHQ-2 Answer Date Recorded PHQ-2 Total Score (If total score is 3 or more points, staff should administer the PHQ-9) 0 05/02/2025 PHQ-9 Answer Date Recorded PHQ-9 Total Score 5 02/10/2024 Personal Safety Answer Date Recorded Have you ever been in or are you currently in a harmful physical or emotional relationship or is someone making you feel afraid or unsafe? 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 Not on file Not on file Not on file Obstetrics History Para Term AB IAB SAB Ectopic Multiple Livin g Live Births 0 0 0 0 0 0 0 0 0 0 0 Last Filed Vital Signs Vital Sign Reading Time Taken Comments Blood Pressure 108/82 05/02/2025 12:56 PM CDT Pulse 78 05/02/2025 12:56 PM CDT Temperature 36.7 C (98.1 F) 05/02/2025 12:56 PM CDT Respiratory Rate 18 05/02/2025 12:56 PM CDT Oxygen Saturation 96% 05/02/2025 12:56 PM CDT Inhaled Oxygen Concentration - - Weight 104.3 kg (230 lb) 05/02/2025 12:56 PM CDT Height 154.9 cm (5' 1) 05/02/2025 12:56 PM CDT Body Mass Index 43.46 05/02/2025 12:56 PM CDT Plan of Treatment Scheduled Procedures Name Priority Associated Diagnoses Date/Ti me COLONOSCOPY Colon cancer screening Health Maintenance Due Date Last Done Comments Albumin Creatinine Ratio, Urine 1950 Foot Exam 1950 Hepatitis B Screening 1967 Well Visit 65+ 02/12/2025 02/13/2024, 01/27, 12/29/2021, Additional history exists Influenza Vaccine (#1) 2025 , 06/06/2023, 05/25/2022, Additional history exists Hemoglobin A1C 10/05/2025 04/04/2025, 0910/2023, 02/17/2024, Additional history exists Dilated Eye Exam 11/28/2025 11/28/2024 Lipid Panel 04/04/2026 04/04/2025, 08/30, 08/03/2023, Additional history exists eGFR 04/04/2026 04/04/2025, 08/30, 05/29/2024, Additional history exists Covid-19 Vaccine ( season) 2026 06/20/2024, 06/06/2023, 05/25/2022, Additional history exists Postponed from 04/29/2025 (Patient declined, but will receive in the future) Depression Screening 05/02/2026 05/02/2025, 04/04/2025, 11/12/2024, Additional history exists Fall Risk Assessment 05/02/2026 05/02/2025, 04/04/2025, 05/29/2024, Additional history exists Osteoporosis Screening-Bone Density Scan 09/23/2026 09/23/2021, 09/23/2021, 07/30/2015 DTaP/Tdap/Td Vaccine (2 - Td or Tdap) 10/09/2029 10/09/2019 Pneumococcal vaccine 65+ Completed 06/19/2017, 05/29 Hepatitis C Screening Completed 07/04/2018 Zoster Vaccine Completed 05/30/2019, 02/27, 11/18/2013 Colon Cancer Screening-CT Colonography Discontinued 09/13/2022, 09/27/2014 Colon Cancer Screening-Colonoscopy Discontinued 09/13/2022, 09/27/2014 Colon Cancer Screening-DNA Stool Discontinued 09/13/2022, 09/27/2014 Colon Cancer Screening-FIT Discontinued 09/13/2022, Colon Cancer Screening-FOBT Discontinued 09/13/2022, 09/27/2014 Colon Cancer Screening-Sigmoidoscopy Discontinued 09/13/2022, 09/27/2014 Colorectal Cancer Screening Discontinued Breast Cancer Screening-Mammogram Discontinued 04/13/2024, 04/12/2024, 11/10/2022, Additional history exists Goals Goal Patient Goal Type Associated Problems Recent Progress Patient-Stated? Author CCM Chronic Pain Care Plan Chronic Care Management No Madeleine Esqueda RN Note: Problem: Chronic Pain Goals: 1. Minimize further functional decline 2. Maximize quality of life 3. Control pain Strategies: - Activity/exercise program recommendation - Conservative stepwise pain medicine strategy with multi-disciplinary approach - Recommend healthy lifestyle strategies and compensatory methods as needed Reduce the likelihood of falling Lifestyle No Madeleine Esqueda RN Note: Below are four things you can do to prevent falls: 1. Begin an exercise program to improve your leg strength & balance 2. Ask your doctor or pharmacist to review your medicines 3. Get annual eye check-ups & update your eyeglasses 4. Make your home safer by: Removing clutter & tripping hazards Putting railings on all stairs & adding grab bars in the bathroom Having good lighting, especially on stairs Contact your local community or senior center for information on exercise, fall prevention programs, or options for improving home safety. Medical Devices Implanted Type Area Zoning Technician Device Identifier Shelf Expiration Date Model / Serial / Lot [employer] [place] 50mm 32mm Hip Neutral Liner Acetabular Altrx Sterile Latex Free [id number] - [id number] Implanted:Qty: 1 on 02/24/2024 by Iker Cage MD at [facility] Other - see comments Right: Hip [employer] 11/26/2028 [id number] / / [id number] [employer] Actis Collar Hip 3 High Offset Stem Femoral [id number] - [id number] Implanted:Qty: 1 on 02/24/2024 by Iker Cage MD at [facility] Other - see comments Right: Hip [employer] 07/28/2032 [id number] / / [id number] [employer] Articul/Wilder 32mm Hip +5mm 12/14 Taper Head Femoral Biolox Delta Latex Free [id number] - [id number] Implanted:Qty: 1 on 02/24/2024 by Iker Cage MD at [facility] Other - see comments Right: Hip [employer] 10/26/2028 [id number] / / [id number] [employer] [place] 50mm Sector Hip Shell Acetabular Gription Sterile Latex Free [id number] - [id number] Implanted:Qty: 1 on 02/24/2024 by Iker Cage MD at [facility] Other - see comments Right: Hip [employer] 11/26/2033 [id number] / / [id number] [employer] [place] 6.5mm 20mm Acetabular Cancellous Screw Bone Sterile 1217-20-500 - [id number] Implanted:Qty: 1 on 02/24/2024 by Iker Cage MD at [facility] Screw Right: Hip [employer] 02/26/2032 0 / / [id number] [employer] [place] 6.5mm 25mm Acetabular Cancellous Screw Bone Sterile 1217-25-500 - [id number] Implanted:Qty: 1 on 02/24/2024 by Iker Cage MD at [facility] Screw Right: Hip [employer] 04/28/2033 0 / / [id number] [employer] Ar-1927bct Corkscrew Suturetape 5.5mm 14.7mm Bioabsorbable Full Thread 1.3mm - [id number] Implanted:Qty: 1 on 04/24/2018 by Randolph Lobato MD at [facility] Left: Shoulder [employer] 10/27/2019 [id number] / / [id number] [employer] Ar-2324 Bcm Swivelock 4.75mm 24.5mm Self Punch Vent Shoulder [place] Suture - [id number] Implanted:Qty: 1 on 04/24/2018 by Randolph Lobato MD at [facility] Left: Shoulder [employer] 10/27/2019 AR-2324 BCM / / [id number] [employer] Ar-2324 Bcm Swivelock 4.75mm 24.5mm Self Punch Vent Shoulder [place] Suture - [id number] Implanted:Qty: 1 on 04/24/2018 by Randolph Lobato MD at [facility] Left: Shoulder [employer] 09/28/2019 AR-2324 BCM / / [id number] [employer] [place] 50mm Sector Hip Shell Acetabular Gription Sterile Latex Free [id number] - [id number] Implanted:Qty: 1 on 05/28/2024 by Iker Cage MD at [facility] Left: Hip [employer] [id number] 09/28/2033 [id number] / / [id number] [employer] [place] 50mm 32mm Hip Neutral Liner Acetabular Altrx Sterile Latex Free [id number] - [id number] Implanted:Qty: 1 on 05/28/2024 by Iker Cage MD at [facility] Left: Hip [employer] [id number] 10/26/2028 [id number] / / [id number] [employer] [place] 6.5mm 35mm Acetabular Cancellous Screw Bone Sterile 1217-35-500 - [id number] Implanted:Qty: 1 on 05/28/2024 by Iker Cage MD at [facility] Left: Hip [employer] [id number] 07/28/2033 0 / / [id number] [employer] Actis Collar Hip 3 High Offset Stem Femoral [id number] - [id number] Implanted:Qty: 1 on 05/28/2024 by Iker Cage MD at [facility] Left: Hip [employer] [id number] 01/26/2034 [id number] / / [id number] [employer] Articul/Wilder 32mm Hip +5mm 12/14 Taper Head Femoral Biolox Delta Latex Free [id number] - [id number] Implanted:Qty: 1 on 05/28/2024 by Iker Cage MD at [facility] Left: Hip [employer] [id number] 01/26/2029 [id number] / / [id number] Procedures Procedure Name Priority Date/Time Associated Diagnosis Comments CRYOTHERAPY SKIN LESION Routine 04/04/2025 12:46 PM CDT Actinic keratosis EGFR Routine 04/04/2025 11:24 AM CDT Mixed hyperlipidemia DIFFERENTIAL AUTO Routine 04/04/2025 11: 24 AM CDT Essential hypertension Mixed hyperlipidemia CBC WITH AUTO DIFFERENTIAL Routine 04/04/2025 11:24 AM CDT Essential hypertension Mixed hyperlipidemia COMPREHENSIVE METABOLIC PANEL Routine 04/04/2025 11:24 AM CDT Mixed hyperlipidemia LIPID PANEL Routine 04/04/2025 11:24 AM CDT Mixed hyperlipidemia HEMOGLOBIN A1C Routine 04/04/2025 11:24 AM CDT Prediabetes DIABETIC EYE EXAM Routine 11/28/2024 11: 26 AM CDT HM MAMMOGRAPHY Routine 04/13/2024 2:39 PM CDT HM COLONOSCOPY Routine 09/13/2022 HEPATITIS C ANTIBODY Routine 07/04/2018 9:03 AM MANAGER OF BUSINESS Need for hepatitis C screening test DEXA SCAN Routine 07/30/2015 from Last 3 Months or Most Recently Relevant to Health Maintenance Results * Cryotherapy, skin lesion (04/04/2025 12:46 PM CDT) Narrative Anabell Jalloh NP - 04/04/2025 12:46 PM CDT Anabell Jalloh NP 04/04/2025 12:52 PM Cryotherapy, skin lesion Date/Time: 04/04/2025 12:46 PM Performed by: Anabell Jalloh NP Authorized by: Anabell Jalloh NP Consent: Verbal consent obtained Risks and benefits: risks, benefits and alternatives were discussed Consent given by: patient Patient understanding: patient states understanding of the procedure being performed Patient consent: the patient's understanding of the procedure matches consent given Procedure consent: procedure consent matches procedure scheduled Patient identity confirmed: verbally with patient Preparation: Patient was prepped and draped in the usual sterile fashion. Local anesthesia used: no Anesthesia: Local anesthesia used: no Sedation: Patient sedated: no Patient tolerance: patient tolerated the procedure well with no immediate complications Comments: Options discussed with patient including OTC remedies, watchful waiting and in office treatment. The risk and benefits of freezing in the office was discussed; patient would like to proceed. 1 lesion on left forearm was frozen three times with liquid nitrogen with good freeze/thaw cycles. Pt tolerated the procedure well. Pt to keep areas clean and dry. Pt advised to anticipate redness and tenderness. Anabell Jalloh NP IN CLINIC/BEDSIDE ORDERABLES Final Result * (ABNORMAL) eGFR (04/04/2025 11:24 AM CDT) eGFR 52(L) >=60 mL/min/1. 73 m2 Comment: Interpretive Data Reference Interval Normal >/= 90 mL/min/1.73m2 Mildly decreased* 60 - 89 mL/min/1.73m2 Mildly to moderately decreased 45 - 59 mL/min/1.73m2 Moderately to severely decreased 30 - 44 mL/min/1.73m2 Severely decreased 15 - 29 mL/min/1.73m2 Kidney Failure < 15 mL/min/1.73m2 *Relative to young adult level Estimated glomerular filtration rate is determined by the 2020 CKD-EPI equation recommended by the National Kidney Foundation (A Unifying Approach to GFR Estimation: Recommendations of the NKF-ASK Task Force on Reassessing the Inclusion of Race in Diagnosing Kidney Disease, JASN 202). The CKD-EPI equation should not be used for patients with unstable renal function and has not been validated in children and those over 70. Current interpretive data was last reviewed 2021. Blood 04/04/2025 11:2 4 AM CDT 04/04/2025 1:34 PM CDT us Anabell Jalloh NP LAB BLOOD ORDERABLES Final Re sult [facility] [address] [facility] Department [place] [address] * Differential, auto (04/04/2025 11:24 AM CDT) Neutrophil abs 3.29 1.50 - 6.50 K/cumm Imm gran abs 0.01 0.00 - 0.10 K/cumm [facility] Lymphocyte abs 2.19 0.80 - 3.30 K/cumm [facility] Monocyte abs 0.50 0.20 - 0.80 K/cumm [facility] Eosinophil abs 0.10 0.00 - 0.50 K/cumm [facility] Basophil abs 0.06 0.00 - 0.10 K/cumm [facility] Neutrophil pct 53.5 % [facility] Comment: Interpretive Data Percent cell count reference ranges are not reported, since discordance with absolute values may lead to misinterpretation of CBC data. Current Interpretive Data was last revised on 2017. Imm gran pct 0.2 % [facility] Comment: Interpretive Data Percent cell count reference ranges are not reported, since discordance with absolute values may lead to misinterpretation of CBC data. Current Interpretive Data was last revised on 2017. Lymphocyte pct 35.6 % [facility] Comment: Interpretive Data Percent cell count reference ranges are not reported, since discordance with absolute values may lead to misinterpretation of CBC data. Current Interpretive Data was last revised on 2017. Monocyte pct 8.1 % [facility] Comment: Interpretive Data Percent cell count reference ranges are not reported, since discordance with absolute values may lead to misinterpretation of CBC data. Current Interpretive Data was last revised on 2017. Eosinophil pct 1.6 % [facility] Comment: Interpretive Data Percent cell count reference ranges are not reported, since discordance with absolute values may lead to misinterpretation of CBC data. Current Interpretive Data was last revised on 2017. Basophil pct 1.0 % [facility] Comment: Interpretive Data Percent cell count reference ranges are not reported, since discordance with absolute values may lead to misinterpretation of CBC data. Current Interpretive Data was last revised on 2017. Blood 04/04/2025 11:2 4 AM CDT 04/04/2025 1:35 PM CDT Anabell Jalloh NP LAB BLOOD ORDERABLES Final Re sult Performing Organization Address City/[facility]/ZIP Co de Phone Number [facility] [address] [address] * (ABNORMAL) CBC with auto differential (04/04/2025 11:24 AM CDT) WBC 6.15 3.80 - 9.90 K/cumm Hgb 14.6 11.9 - 15.5 g/dL [facility] Hct 46.0(H) 35.6 - 45.5 % [facility] Plt 238 150 - 400 K/cumm [facility] MPV 9.8 9.1 - 12.3 fL [facility] RBC 5.09 3.90 - 5.20 M/cumm [facility] MCV 90.4 81.3 - 96.4 fL [facility] MCH 28.7 27.1 - 33.3 pg [facility] MCHC 31.7(L) 32.3 - 35.7 g/dL [facility] RDW CV 13.6 11.1 - 14.9 % [facility] RDW SD 45.4 35.7 - 48.1 fL [facility] NRBC abs 0.00 0.00 - 0.01 K/cumm [facility] Blood 04/04/2025 11:2 4 AM CDT 04/04/2025 1:35 PM CDT Anabell Jalloh NP LAB BLOOD ORDERABLES Final Re sult Performing Organization Address City/[facility]/ZIP Co de Phone Number LAURA [address] [employer] [place] [address] * (ABNORMAL) Hemoglobin A1c (04/04/2025 11:24 AM CDT) Hgb A1C 6.7(H) 4.0 - 5.6 % Estimated Average Glucose 146 mg/dL [facility] Comment: The ADA recommends reporting an estimated Average Glucose (eAG) with all Hemoglobin A1c results using the equation derived from a study of 507 normal and diabetic adults. Minority populations were underrepresented and children were not included. (Diabetes Care 31:1935-6853, 2008). The eAG is not equivalent to a fasting glucose. Blood 04/04/2025 11:2 4 AM CDT 04/04/2025 1:35 PM CDT us Anabell Jalloh NP LAB BLOOD ORDERABLES Final Re sult [facility] PALACIOS [id number] [facility] Department [place] [address] * (ABNORMAL) Lipid panel (04/04/2025 11:24 AM CDT) Cholesterol 234(H) 30 - 199 mg/dL Comment: Interpretive Data Ages < or = 19 years Acceptable: <170 mg/dL Borderline high: 170-199 mg/dL High: >or= 200 mg/dL Ages > or = 20 years Desirable: <200 mg/dL Borderline high: 200-239 mg/dL High: >or= 240 mg/dL Literature References: 1. Expert Panel on Integrated Guidelines for Cardiovascular Health and Risk Reduction in Children and Adolescents. Pediatrics 2011;128:S213 2. NCEP Expert Panel. Circulation 2004;110:227 Current Interpretive Data was last revised on 2018. Triglycerides 134 <=149 mg/dL [facility] PALACIOS Comment: Interpretive Data Ages < or = 9 years Acceptable: <75 mg/dL Borderline high: 75-99 mg/dL High: >or= 100 mg/dL Ages 10 to 20 years Acceptable: <90 mg/dL Borderline high: 90-129 mg/dL High: >or= 130 mg/dL Ages > or = 20 years Desirable: <150 mg/dL Borderline high: 150-199 mg/dL High: 200-499 mg/dL Very high: >or= 499 mg/dL Literature References: 1. Expert Panel on Integrated Guidelines for Cardiovascular Health and Risk Reduction in Children and Adolescents. Pediatrics 2011;128:S213 2. NCEP Expert Panel. Circulation 2004;110:227 Current Interpretive Data was last revised on 2018. HDL 69 >=40 mg/dL LAURA PALACIOS Comment: Interpretive Data Ages < or = 19 years Acceptable: >45 mg/dL Borderline low: 40-45 mg/dL Low: <40 mg/dL Ages > or = 20 years Desirable: >or= 60 mg/dL Low: <40 mg/dL Literature References: 1. Expert Panel on Integrated Guidelines for Cardiovascular Health and Risk Reduction in Children and Adolescents. Pediatrics 2011;128:S213 2. NCEP Expert Panel. Circulation 2004;110:227 Current Interpretive Data was last revised on 2018. LDL, calculated 141(H) <=129 mg/dL LAURA PALACIOS Comment: Interpretive Data Ages < or = 19 years Acceptable: <110 mg/dL Borderline high: 110-129 mg/dL High: >or= 130 mg/dL Ages > or = 20 years Optimal: <100 mg/dL Near optimal: 100-129 mg/dL Borderline high: 130-159 mg/dL High: >160 mg/dL Calculated using the Chucho LDL-C estimating equation. This equation was implemented on 2024. Prior to this date LDL-C was estimated using the Friedewald equation. Literature References: 1. Expert Panel on Integrated Guidelines for Cardiovascular Health and Risk Reduction in Children and Adolescents. Pediatrics 2011;128:S213 2. NCEP Expert Panel. Circulation 2004;110:227 3. Chucho Wilkerson et al. STARLA Cardiol. 2019December 27;5(5):540-548. doi: 10.1001/jamacardio.2020.0013 Current Interpretive Data was last revised on 2024. Non-HDL Cholesterol 165 mg/dL LAURA Comment: Interpretive Data Ages < or = 19 years Acceptable: <120 mg/dL Borderline high: 120-144 mg/dL High: >145 mg/dL Ages > or = 20 years When triglycerides are >200 mg/dL, Non-HDL cholesterol is a secondary target of therapy with treatment goals that are 30 mg/dL greater than the LDL cholesterol target. Literature References: 1. Expert Panel on Integrated Guidelines for Cardiovascular Health and Risk Reduction in Children and Adolescents. Pediatrics 2011;128:S213 2. NCEP Expert Panel. Circulation 2004;110:227 Current Interpretive Data was last revised on 2018. Chol/HDL ratio 3 [facility] Blood 04/04/2025 11:2 4 AM CDT 04/04/2025 1:34 PM CDT Anabell Jalloh NP LAB BLOOD ORDERABLES Final Re sult [facility] [address] [facility] Department [place] [address] * (ABNORMAL) Comprehensive metabolic panel (04/04/2025 11:24 AM CDT) Sodium 141 135 - 145 mmol/L Potassium, pl 4.6 3.3 - 4.9 mmol/L [facility] Chloride 105 97 - 110 mmol/L [facility] CO2 25 22 - 32 mmol/L [facility] Anion gap 11 2 - 15 mmol/L [facility] BUN 28(H) 6 - 25 mg/dL [facility] Creatinine 1.10 0.60 - 1.10 mg/dL [facility] Glucose 101 70 - 199 mg/dL [facility] Comment: Interpretive Data Fasting glucose >/= 126 mg/dl is diagnostic for diabetes. Fasting is defined as no caloric intake for at least 8 hours. Fasting glucose between 100 mg/dl to 125 mg/dl is diagnostic of prediabetes. In a patient with classic symptoms of hyperglycemia or hyperglycemic crisis, a random glucose >/= 200 mg/dl is diagnostic for diabetes. In the absence of unequivocal hyperglycemia, results should be confirmed by repeat testing. The classification and Diagnosis of Diabetes Diabetes Care 2021; 46: S19-S40. Current interpretive data was last revised 2022. Calcium 11.0(H) 8.5 - 10.3 mg/dL [facility] Bilirubin, total 0.6 0.1 - 1.2 mg/dL [facility] Protein, pl 7.6 6.5 - 8.5 g/dL [facility] Albumin 4.4 3.5 - 5.0 g/dL [facility] Alk phos 92 40 - 130 Units/L [facility] ALT 14 7 - 45 Units/L [facility] AST 19 10 - 45 Units/L [facility] Blood 04/04/2025 11:2 4 AM CDT 04/04/2025 1:34 PM CDT Anabell Jalloh COMPUTER AIDED DRAFTER LAB BLOOD ORDERABLES Final Re sult Performing Organization Address [facility]/ZIP Co de Phone Number LAURA [address] [facility] Department [place] [address] * Diabetic Eye Exam (11/28/2024 11:26 AM CDT) Historical Provider HEALTH MAINTENANCE Final Result * MAMMOGRAPHY (04/13/2024 2:39 PM CDT) Mammography Normal Historical Provider HEALTH MAINTENANCE Final Result * COLONOSCOPY (09/13/2022) Colonoscopy Normal Historical Provider HEALTH MAINTENANCE Final Result * Hepatitis C antibody (07/04/2018 9:03 AM MANAGER OF BUSINESS) Hep C Ab NON-REACTI VE NON-REACTI VE [facility] [place] SIGNAL TO CUT-OFF 0.02 <1.00 [facility] [place] Blood specimen (specimen) 07/04/2018 9:03 AM MANAGER OF BUSINESS 07/04/2018 9:04 AM MANAGER OF BUSINESS Narrative [facility] - 07/05/2018 10:52 AM MANAGER OF BUSINESS FASTING:YES FASTING: YES Resulting Agency Comment Performing Organization Information: Site ID: [place] Name: [facility] Address: [facility] [place] [address] Director: Timoteo Del Real D.O., MPH Agustin Arevalo MD LAB MICROBIOLOGY - GENERA L ORDERABLES Final Result [facility] [place] * DEXA SCAN (07/30/2015) DEXA Scan Normal Historical Provider HEALTH MAINTENANCE Final Result from Last 3 Months or Most Recently Relevant to Health Maintenance Insurance MEDICARE [facility] SENIOR SUPPLEMENT MEDICARE AET SENIOR SUPPLEMENT MEDICARE AETNA SENIOR SUPPLEMENT MEDICARE AETNA SENIOR SUPPLEMENT Advance Directives For more information, please contact: [phone] * Full Code (Latest Code Status on File) Date Activated Date Inactivated Comments 05/28/2024 11:38 AM 05/29/2024 5:04 PM * Full Code Date Activated Date Inactivated Comments 02/24/2024 1:27 PM 02/25/2024 4:59 PM Healthcare Agents on File Name Relationship Healthcare Agent [facility] Communication Mohini Carrillo First Alternate Health Care Agent Care Teams Management Engineer Relationship Specialty Start Date End Date Anabell Jalloh NP [address] [address] PCP - General Family Medicine 04/04/25 Randolph Lobato MD Surgeon Orthopedic Surgery 07/03/18 Maria E Schneider MD [address] [place] [address] Anesthesiologist Pain Management 10/28/20 Leslye Armenta MD [address] [place] [address] Consulting Physician Obstetrics and Gynecology 10/06/22 Shabnam Rivera MD [address] [place] [address] Referring Physician Ophthalmology 02/09/23 Iker Cage MD [address] [facility] [address] [place] [address] Surgeon Orthopedic Surgery 02/13/24 [place] [address] [place] [address] Consulting Physician Urology 02/13/24 Zeus Marie MD [address] [address] Consulting Physician Psychiatry 02/13/24
--- OUTSIDE RECORDS SUMMARY | 2025-05-14 10:00 | XMS_ITS | Clinical Summary ---
Author Organization [facility] Address [address] [place] [address] Care Team Providers Care Manager Risk Name Role Phone Belkys Jama MD Primary Care Provider Allergies No known active allergies Medications * This document contains information received from the source organization and may not represent a complete record from that organization. losartan (COZAAR) 50 MG tablet Take 1 tablet (50 mg total) by mouth 2 (two) times daily. Active gabapentin (NEURONTIN) 300 MG capsule Take 1 capsule (300 mg total) by mouth daily. Take 3 caps daily am- Total 900 mg in the am Active gabapentin (NEURONTIN) 600 MG tablet Take 1 tablet (600 mg total) by mouth nightly at bedtime. Active oxyCODONE ER (XTAMPZA ER) 13.5 MG Capsule Extended Release 12 hour Abuse-Deterrent 12 hr abuse-deterrent capsule Take 13.5 mg by mouth 2 (two) times a day. Active oxybutynin (DITROPAN) 5 MG tablet Take 1 tablet (5 mg total) by mouth 2 (two) times daily. Active amLODIPine (NORVASC) 5 MG tablet Take 1 tablet (5 mg total) by mouth daily. Active escitalopram (LEXAPRO) 20 MG tablet Take 1 tablet (20 mg total) by mouth daily. Take one and one-half tabs PO QPM- Total per day 30 mg. Active Vitamin D3 125 mcg Tab Take 1 tablet (125 mcg total) by mouth daily. Active docusate sodium (COLACE) 100 MG capsule Take 1 capsule (100 mg total) by mouth daily. Active Coenzyme Q10 (COQ10) 100 MG Cap Take 100 mg by mouth daily. Active Social History Tobacco Use Types Packs/Day Years Used Date Smoking Tobacco: Never Assessed Comments Unknown Sex and Gender Information Value Date Recorded Sex Assigned at Not on file Legal Sex Female 1:20 PM CDT Gender Identity Not on file Sexual Orientation Not on file Last Filed Vital Signs Vital Sign Reading Time Taken Comments Blood Pressure 118/74 06/08/2023 12:38 PM CDT Pulse 64 06/08/2023 12:38 PM CDT Temperature 36.4 C (97.5 F) 06/08/2023 12:38 PM CDT Respiratory Rate 20 06/08/2023 12:38 PM CDT Oxygen Saturation - - Inhaled Oxygen Concentration - - Weight 115.2 kg (254 lb) 03/08/2023 11:00 AM CDT Height 154.9 cm (5' 1) 03/08/2023 11:00 AM CDT Body Mass Index 47.99 03/08/2023 11:00 AM CDT Plan of Treatment Health Maintenance Due Date Last Done Comments Hepatitis C 1968 Annual Medicare Wellness Visit 2014 COVID-19 Vaccine ( season) 2025 06/06/2023, 05/25/2022, 12/10/2021, Additional history exists DTaP, Tdap and Td Vaccines (2 - Td or Tdap) 10/09/2029 10/09/2019 Pneumococcal Vaccine: 50+ Years Completed 06/19/2017, 06/10/2016 Zoster Vaccines Completed 05/30/2019, 02/27, 11/18/2013 Dexa Scan (General) Completed 09/23/2021 RSV Immunization or 60+ Years Completed 06/06/2023 Meningococcal B Vaccine Aged Out No l onger eligible based on patient's age to complete this topic Meningococcal Vaccine Aged Out No joan chica eligible based on patient's age to complete this topic RSV Immunizations Under 20 Months Aged Out No longer eligible based on patient's age to complete this topic Insurance MEDICARE AETNA Care Teams Manager Risk Relationship Specialty Start Date End Date Belkys Jama MD [address] [place] [address] PCP - General SPORTS MEDICINE 02/23/23
--- OUTSIDE RECORDS SUMMARY | 2025-05-14 10:00 | XMS_ITS | Encounter Summary ---
Author Organization [facility] Healthcare Address [address] [place] [address] Care Team Providers Care Mop Machine Operator Name Role Phone Randolph Lobato MD Unavailable [phone] Maria E Schneider MD Unavailable [phone] Leslye Armenta MD Unavailable [phone] Shabnam Rivera MD Unavailable [phone] Iker Cage MD Unavailable [phone] Jaden Alvares MD Unavailable Zeus Marie MD Unavailable [phone] Anabell Jalloh NP Primary Care Provider [phone] Reason for Visit * Reason Onset Date Comments Test Results 04/05/2025 Encounter Details Date Type Department Care Team (Latest Contact Info) Description 04/05/2025 Results Follow-Up [facility] Medical Group Primary Care at [address] [address] Anabell Jalloh NP [address] [place] [address] [address] [place] [address] Hemoglobin A1c, Lipid panel, Comprehensive metabolic panel, Additional followed-up results: 3 Social History Tobacco Use Types Packs/Day Years Used Date Smoking Tobacco: Never Cigarettes Smokeless Tobacco: Never Alcohol Use Standard Drinks/Week Comments Yes 2 [...] points, staff should administer the PHQ-9) 0 04/04/2025 PHQ-9 Answer Date Recorded PHQ-9 Total Score 5 02/10/2024 Personal Safety Answer Date Recorded Have you ever been in or are you currently in a harmful physical or emotional relationship or is someone making you feel afraid or unsafe? Denies 05/28/2024 Comments No Sex and Gender Information Value Date Recorded Sex Assigned at Not on file Legal Sex Female 1:49 PM VEGETABLE PACKER Gender Identity Female 12/31/2018 7:50 PM CDT Sexual Orientation Straight 01/29/2020 10 :10 AM CDT Occupation Industry Job Start Date Job End Date Retired nurse Not on file Not on file Not on file documented as of this encounter Miscellaneous Notes * Telephone Encounter - Hortencia Ram - 04/05/2025 2:57 PM CDT Test Result Request Type of test: Labs Date of test: 04/04/2025 Where was the test performed at?[facility] Did provider dictate result yet? Yes Where were results relayed from in the chart? Telephone encounter Additional Questions/Comments: Patient returned call, AC read her FISH RECEIVER Shubham's note verbatim. Patientverbalized understanding and scheduled a follow up appt. Does message need to be routed? Yes-FYI Only * Telephone Encounter - Charley Wu MA - 04/05/2025 2:37 PM CDT LMOM For pt to call office. documented in this encounter Plan of Treatment Scheduled Procedures Name Priority Associated Diagnoses Date/Ti me COLONOSCOPY Colon cancer screening documented as of this encounter Goals Goal Patient Goal Type Associated Problems Recent Progress Patient-Stated? Author CCM Chronic Pain Care Plan Chronic Care Management No Madeleine Esqueda, SCOTT Note: Problem: Chronic Pain Goals: 1. Minimize further functional decline 2. Maximize quality of life 3. Control pain Strategies: - Activity/exercise program recommendation - Conservative stepwise pain medicine strategy with multi-disciplinary approach - Recommend healthy lifestyle strategies and compensatory methods as needed Reduce the likelihood of falling Lifestyle No Madeleine Esqueda, SCOTT Note: Below are four things you can [...] programs, or options for improving home safety. documented as of this encounter Visit Diagnoses Not on filedocumented in this encounter Care Teams Mop Machine Operator Relationship Specialty Start Date End Date Anabell Jalloh FISH RECEIVER [address] [place] [address] PCP - General Family Medicine 04/04/25 Randolph Lobato MD Surgeon Orthopedic Surgery 07/03/18 Maria E Schneider MD [address] [place] [address] Anesthesiologist Pain Management 10/28/20 Leslye Armenta MD [address] [place] [address] Consulting Physician Obstetrics and Gynecology 10/06/22 Shabnam Rivera MD [address] [place] [address] Referring Physician Ophthalmology 02/09/23 Iker Cage MD [address] [facility] [place] [address] Surgeon Orthopedic Surgery 02/13/24 [place] [address] [place] [address] Consulting Physician Urology 02/13/24 Zeus Marie MD [address] [address] Consulting Physician Psychiatry 02/13/24 documented as of this encounter
--- OUTSIDE RECORDS SUMMARY | 2025-05-14 10:01 | XMS_ITS | Clinical Summary ---
Author Organization [facility] Address [address] [place] [address] Care Team Providers Care Water Regulator And Valve Repairer Name Role Phone Agustin Arevalo MD Primary Care Provider [phone] Source Comments [facility],non-owned Affiliates and Associated Physician Practices is amultiple site organization consisting of ambulatory clinics and hospital sitesin [place], [place], [place] and [place]. This disclosure is being madepursuant to the Care Everywhere program and may not contain all information available regarding this patient. Last updated 18.[facility] Allergies Active Allergy Reactions Criticality Noted Date Comments Nickel Rash Low 08/07/2011 Paroxetine 05/30/2010 Makes me feel like skin crawling all over Medications * Be aware that medications may not be up to date on this document. Alwaysverify current medications with the patient. escitalopram (LEXAPRO) 20 MG tablet Take 20 mg by mouth once daily. Active potassium chloride (KLOR-CON M) 20 MEQ tablet Take 20 mEq by mouth 2 times daily. Active losartan (COZAAR) 50 MG tablet Take 50 mg by mouth once daily. Active amLODIPine (NORVASC) 5 MG tablet Take 5 mg by mouth once daily 06/06/2019 Active gabapentin (NEURONTIN) 300 MG capsule TK 2 CS PO TID 0 05/11/2019 Active Active Problems No known active problems Social History Tobacco Use Types Packs/Day Years Used Date Smoking Tobacco: Never Smokeless Tobacco: Never Tobacco Cessation:Counseling Given: No Alcohol Use Standard Drinks/Week Comments Yes 0 (1 standard drink = 0.6 oz pur e alcohol) Rare Comments No Sex and Gender Information Value Date Recorded Sex Assigned at Not on file Legal Sex Female 5:45 AM HEARING INSTRUMENT SPECIALIST Gender Identity Not on file Sexual Orientation Not on file Last Filed Vital Signs Vital Sign Reading Time Taken Comments Blood Pressure 124/82 06/25/2019 10:21 AM CDT Pulse 62 11/10/2015 11:38 AM CDT Temperature 36.2 C (97.2 F) 11/10/2015 11:38 AM CDT Respiratory Rate 14 11/10/2015 11:38 AM CDT Oxygen Saturation 93% 11/10/2015 12:19 PM CDT Inhaled Oxygen Concentration - - Weight 110.2 kg (243 lb) 06/25/2019 10:21 AM CDT Height 152.4 cm (5') 06/25/2019 10:21 AM CDT Body Mass Index 47.46 06/25/2019 10:21 AM CDT Plan of Treatment Health Maintenance Due Date Last Done Comments MEDICARE AWV 12 MONTHS 1950 HEPATITIS C SCREENING 02/10/1968 DTAP/TDAP/TD VACCINES (1 - Tdap) 02/15/1968 PNEUMOCOCCAL VACCINE 50+ (1 of 1 - PCV) 1999 ZOSTER VACCINE (1 of 2) 1999 SCREENING FOR DIABETES 06/25/2019 5, 10/14/2014, 07/01/2014, Additional history exists Respiratory Syncytial Virus (RSV) Vaccine Pt: or over 60 yrs (1 - 1-dose 75+ series) 02/15/2024 DEPRESSION SCREENING 08/29/2024 COVID-19 VACCINE ( - 2024- season) 2025 06/20/2021, 10/28/2020, 09/25/2020 INFLUENZA VACCINE (#1) 2025 0, 06/12/2019, 05/21/2018, Additional history exists BONE DENSITY TESTING Completed 09/23/2021, 07/30/2015, 03/15/2009 HEPATITIS B VACCINE Aged Out No longe r eligible based on patient's age to complete this topic HIB VACCINE Aged Out No longer eligi ble based on patient's age to complete this topic HPV VACCINE Aged Out No longer eligi ble based on patient's age to complete this topic MENINGOCOCCAL (Group B) VACCINE SHARED DECISION-MAKING Aged Out No longer eligible based on patient's age to complete this topic MENINGOCOCCAL GROUPS A/C/Y/W VACCINE Aged Out No longer eligible based on patient's age to complete this topic Procedures Procedure Name Priority Date/Time Associated Diagnosis Comments DEXA BONE DENSITY AXIAL SKELETON Routine 09/23/2021 10:06 AM HEARING INSTRUMENT SPECIALIST Asymptomatic menopausal state COMPREHENSIVE METABOLIC PANEL Routine 07/18/2015 7:28 AM HEARING INSTRUMENT SPECIALIST Hyperlipidemia, unspecified hyperlipidemia Vitamin D deficiency, unspecified from Last 3 Months or Most Recently Relevant to Health Maintenance Results * DEXA BONE DENSITY AXIAL SKELETON (09/23/2021 10:06 AM HEARING INSTRUMENT SPECIALIST) Anatomical Region Laterality Modality Nuclear Medicine 09/23/2021 1:07 PM HEARING INSTRUMENT SPECIALIST Impressions 09/23/2021 1:07 PM HEARING INSTRUMENT SPECIALIST IMPRESSION: Normal bone mineral density of the lumbar spine and hips. WORLD HEALTH ORGANIZATION DEFINITIONS NORMAL= T-Score at or above -1.0 SD OSTEOPENIA = T-Score between -1 and -2.5 SD OSTEOPOROSIS = T-Score at or below -2.5 SD > Interpreting Provider: Gabi Lopez on 09/23/2021 1:07 PM Narrative 09/23/2021 1:07 PM HEARING INSTRUMENT SPECIALIST BONE MINERAL DENSITY STUDY: INDICATION: 71-year-old for osteoporosis screening. COMPARISON: Prior study dated 07/30/2015 FINDINGS: The mean bone mineral content of the lumbar spine is 1.495 g/cm2. The T-score is 2.6 consistent with normal bone mineral density. The mean bone mineral content of the left femoral neck is 1.152 g/cm2. The T-score is 0.8 consistent with normal bone mineral density. The mean bone mineral content of the left total hip is 1.255 g/cm2. The T-score is 2.0 consistent with normal bone mineral density. The mean bone mineral content of the right femoral neck is 1.270 g/cm2. The T-score is 1.7 consistent with normal bone mineral density. The mean bone mineral content of the right total hip is 1.327 g/cm2. The T-score is 2.5 consistent with normal bone mineral density. FRAX 10 year fracture risk Major osteoporotic fracture: 8.4% Hip fracture: 0.3% Procedure Note Gabi Lopez DO - 09/23/2021 BONE MINERAL DENSITY STUDY: INDICATION: 71-year-old for osteoporosis screening. COMPARISON: Prior study dated 07/30/2015 FINDINGS: The mean bone mineral content of the lumbar spine is 1.495 g/cm2. The T-score is 2.6 consistent with normal bone mineral density. The mean bone mineral content of the left femoral neck is 1.152 g/cm2. The T-score is 0.8 consistent with normal bone mineral density. The mean bone mineral content of the left total hip is 1.255 g/cm2.The T-score is 2.0 consistent with normal bone mineral density. The mean bone mineral content of the right femoral neck is 1.270 g/cm2. The T-score is 1.7 consistent with normal bone mineral density. The mean bone mineral content of the right total hip is 1.327 g/cm2.The T-score is 2.5 consistent with normal bone mineral density. FRAX 10 year fracture risk Major osteoporotic fracture: 8.4% Hip fracture: 0.3% IMPRESSION: Normal bone mineral density of the lumbar spine and hips. WORLD HEALTH ORGANIZATION DEFINITIONS NORMAL= T-Score at or above -1.0 SD OSTEOPENIA = T-Score between -1 and -2.5 SD OSTEOPOROSIS = T-Score at or below -2.5 SD > Interpreting Provider: Gabi Lopez on 09/23/2021 1:07 PM us Susan Sue MD DEXA ORDERABLES Final Resu lt * (ABNORMAL) COMPREHENSIVE METABOLIC PANEL (07/18/2015 7:28 AM HEARING INSTRUMENT SPECIALIST) [facility] Glucose 107(H) 70 - 105 mg/dL 07/18/2015 8:07 AM [facility] Sodium 138 136 - 145 mmol/L 07/18/2015 8:07 AM [facility] Potassium 4.0 3.5 - 5.1 mmol/L 07/18/2015 8:07 AM [facility] Chloride 107 98 - 107 mmol/L 07/18/2015 8:07 AM [facility] CO2 22(L) 23 - 31 mmol/L 07/18/2015 8:07 AM [facility] Calcium 9.53 9.08 - 10.48 mg/dL 07/18/2015 8:07 AM [facility] Anion Gap 9 5 - 20 mmol/L 07/18/2015 8:07 AM [facility] BUN 18.9(H) 5.3 - 18.7 mg/dL 07/18/2015 8:07 AM [facility] Creatinine 0.85 0.61 - 1.07 mg/dL 07/18/2015 8:07 AM [facility] Alkaline Phosphatase 73 39 - 139 U/L 07/18/2015 8:07 AM [facility] ALT 24 8 - 65 U/L 07/18/2015 8:07 AM [facility] AST 23 8 - 42 U/L 07/18/2015 8:07 AM [facility] Protein Total 6.9 6.3 - 8.2 gm/dL 07/18/2015 8:07 AM [facility] Albumin 4.0 3.3 - 4.9 gm/dL 07/18/2015 8:07 AM [facility] Bilirubin Total 0.6 0.3 - 1.2 mg/dL 07/18/2015 8:07 AM [facility] eGFR by MDRD >60 >60 mL/min/1.7 3m2 07/18/2015 8:07 AM [facility] eGFR by MDRD >60 >60 mL/min/1.7 3m2 07/18/2015 8:07 AM [facility] Blood BLOOD SPECIMEN / Unknown Lab Venipuncture / Unknown 07/18/2015 7:28 AM [facility] 07/18/2015 7:35 AM [facility] us Elba Nevarez MD LAB - CHEMISTRY ORDERABLES Final Result Performing Organization Address City/State/[facility] Co de Phone Number [facility] [address] [place] [address] from Last 3 Months or Most Recently Relevant to Health Maintenance Insurance MEDICARE AETNA MEDICARE AETNA AETNA Care Teams Water Regulator And Valve Repairer Relationship Specialty Start Date End Date Agustin Arevalo MD [address] [place] [address] [address] [address] PCP - General Internal Medicine 06/25/19
== END 2025-05-14 08:56 | disposition home or self-care (01) ==
LOC: ANHFOHIMG 08:57
PROVIDERS: PCP Obstetrics & Gynecology; Visit Provider Obstetrics & Gynecology
DX: Z12.31 Encounter for screening mammogram for malignant neoplasm of breast (principal)
CPT/HCPCS: 77063; 77067